=== PATIENT | female | born 1970 | race Caucasian/White ===

== ENCOUNTER → 2021-06-27 | Outpatient (CLI) | payer OTHER ==
--- NOTE | 2021-06-27 22:36 | MR ---
EXAMINATION TYPE: MR brain/cspine wo/w DATE OF EXAM: 06/27/2021 COMPARISON: None HISTORY: Difficulty swallowing, head and neck pain CONTRAST: Standard multiplanar, multisequence MRI departmental protocol utilizing 4.5 mL intravenous Gadavist g adolinium contrast. There is no evidence of an acute infarct. Diffusion images are normal. On the T2 and FLAIR images there are scattered small multiple foci of increased signal at the martin-wh ite matter junction of both cerebral hemispheres. Total number is less than 20 and most of these sakina ure less than 5 mm. The brainstem is intact. Corpus callosum appears normal. Sella turcica appears no rmal. Contrast images show no pathologic intracranial enhancement. There is normal enhancement of the venou s sinuses. Pituitary stalk is in the midline. Optic chiasm appears normal. There is no evidence of or bital mass. The cervical vertebra show some straightening. There is a few millimeter anterior subluxation of C3 i n relation to C4. There are small posterior disc bulging and herniation at C3-4 and C4-5 and C5-6. Th is appears larger at C3-4 level. Spinal canal is narrowed to 5 mm at C3-4. Canal measures 5.5 mm at C 5-6. Canal measures 7 mm at C4-5. Canal measures 6.5 mm at C2-3. There is mild loss of height of C6 v ertebral body of 20% the posterior elements show hypertrophic facet arthropathy in the mid cervical s pine. The cervical spinal cord shows no edema. Contrast images show no pathologic enhancement in the cervical spine. IMPRESSION: Multiple scattered white matter high signal foci in the brain more likely related to microvascular is chemia. Demyelinating disease also possible. No evidence of cortical infarct. Spondylotic changes in the cervical spine with old mild compression fracture C6. Multilevel mild post erior disc herniation and facet arthropathy. There is multilevel cervical spinal stenosis as above th at is more severe at C3-4 and C5-6.
== END | disposition home or self-care (01) ==
LOC: RADMRIMAIN 15:13 → EDBD 15:13
PROVIDERS: ATTEND Nurse Practitioner Family
DX: R93.0 Abnormal findings on diagnostic imaging of skull and head, not elsewhere classified (principal); M48.02 Spinal stenosis, cervical region; M50.20 Other cervical disc displacement, unspecified cervical region; M47.812 Spondylosis without myelopathy or radiculopathy, cervical region; M48.52XA Collapsed vertebra, not elsewhere classified, cervical region, initial encounter for fracture
CPT/HCPCS: 70553; 72156; A9585

== ENCOUNTER → 2022-06-30 | Day surgery (SDC) | payer OTHER ==
[2022-06-27 14:47] VITALS: BMI 19.9
[~2022-06-30] MED LIST: LIDOCAINE 1% INJ 10MG/ML (5 ML VIAL-PF) SQ ONE
[2022-06-30 10:41] VITALS: BP 118/56; PULSE 99; RESP 18; TEMP 98.2
[2022-06-30 10:50] LABS: Basophils % (A) 0 %; Eosinophils % (A) 0 %; HCT 34.2 % (34.0-46.0); HGB 11.3 gm/dL (11.4-16.0); Lymphocytes # (A) 1.4 k/uL (1.0-4.8); Lymphocytes % (A) 24 %; MCH 31.6 pg (25.0-35.0); MCHC 32.9 g/dL (31.0-37.0); MCV 96.1 fL (80.0-100.0); Mean Platelet Volume 7.3; Monocytes # (A) 0.5 k/uL (0-1.0); Monocytes % (A) 8 %; Neutrophils % (A) 67 %; Platelet Count 330 k/uL (150-450); RBC 3.56 m/uL (3.80-5.40); RDW 13.8 % (11.5-15.5)
[2022-06-30 11:15] LABS: Potassium 3.8 mmol/L (3.5-5.1)
--- NOTE | 2022-06-30 14:37 | IR ---
EXAMINATION TYPE: IR cvc insert >=5 years DATE OF EXAM: 06/30/2022 COMPARISON: NONE CLINICAL HISTORY: Infection Needs long-term intravenous access for antibiotics. PROCEDURE: Hand hygiene obtained with soap and water and alcohol-based hand rub. After informed consent, the skin overlying the left brachial vein was localized with ultrasound and n oted to be compressible and patent. An ultrasound image was obtained and submitted on the patient's chart. The overlying skin was prepped and draped and Lidocaine was used for local anesthesia. A ski n damaris was made with a scalpel. Access was gained to the vein under ultrasound guidance with a 21 ga uge needle and a 0.018 inch wire was advanced. Access site was dilated with Peel-Away sheath and cat heter tailored to the appropriate length and advanced such that the distal tip is at the cavoatrial j unction. Spot image was obtained verifying placement. Catheter was fixed to the skin and a sterile dressing was placed following hemostasis. Catheter was aspirated and flushed with saline. Patient w as discharged in stable condition without complication.Maximal barrier technique is utilized. Ultras ound image is documented on the chart. Ultrasound used with sterile technique. Fluoro time and fluoroscopic images submitted to document procedure: 31 intraoperative C-arm images, 0.5 minutes fluoroscopy time IMPRESSION: STATUS POST ULTRASOUND AND FLUOROSCOPIC GUIDED PICC LINE PLACEMENT, READY FOR USE. THIS PROCEDURE WAS PERFORMED BY THE UNDERSIGNED.
== END ==
LOC: CATHCVL 10:07
PROVIDERS: ATTEND Radiology Diagnostic Radiology
DX: L08.9 Local infection of the skin and subcutaneous tissue, unspecified (principal); B95.62 Methicillin resistant Staphylococcus aureus infection as the cause of diseases classified elsewhere; M19.90 Unspecified osteoarthritis, unspecified site; Z79.899 Other long term (current) drug therapy; Z79.82 Long term (current) use of aspirin; Z88.1 Allergy status to other antibiotic agents; Z88.2 Allergy status to sulfonamides
CPT/HCPCS: 36573; 80051; 82565; 84520; 85025; 81025; J2001

== ENCOUNTER → 2023-02-12 | Outpatient (CLI) | payer OTHER ==
[2023-02-12 14:35] LABS: INR 0.9 (<1.2)
[2023-02-12 14:36] LABS: Partial Thromboplastin Time 22.1 sec (22.0-30.0); Prothrombin Time 9.7 sec (9.0-12.0)
[2023-02-12 18:13] LABS: Basophils # (A) 0.01 X 10*3/uL (0.00-0.10); Basophils % (A) 0.2 %; Eosinophils # (A) 0 X 10*3/uL (0.04-0.35); Eosinophils % (A) 0 %; HCT 40.1 % (37.2-46.3); Immature Grans, Automated 0.4 %; Lymphocytes # (A) 1.32 X 10*3/uL (0.90-5.00); Lymphocytes % (A) 23.7 %; MCHC 32.4 g/dL (32.0-37.0); MCV 98.8 fL (80.0-97.0); Mean Platelet Volume 8.8 fL (9.5-12.2); Monocytes # (A) 0.63 X 10*3/uL (0.20-1.00); Monocytes % (A) 11.3 %; NRBC Per 100 WBC 0 /100 WBCS (0.0-0.0); Neutrophils # (A) 3.59 X 10*3/uL (1.80-7.70); Neutrophils % (A) 64.4 %; Platelet Count 325 X 10*3/uL (140-440); RBC 4.06 X 10*6/uL (4.10-5.20); WBC 5.57 X 10*3/uL (4.50-10.00)
[2023-02-12 18:19] LABS: African American GFR (CKD) 85.2 (60.0-200.0); Blood Urea Nitrogen 20.8 mg/dL (9.0-27.0); Non-African American GFR(CKD) 73.5 (60.0-200.0); Potassium 3.7 mmol/L (3.5-5.5)
[2023-02-12 18:51] LABS: Appearance,Urine Clear (Clear); Bilirubin,Urine Negative (Negative); Blood,Urine Negative (Negative); Color,Urine Dark Yellow (Yellow); Ketones,Urine Negative (Negative); Nitrite,Urine Negative (Negative); Specific Gravity,Urine 1.023 (1.001-1.030); Urobilinogen,Urine 0.2 (0.2,1.0)
[2023-02-12 18:59] LABS: Bacteria,Urine None Seen /HPF (None Seen)
== END | disposition home or self-care (01) ==
LOC: LABPAT 12:20
PROVIDERS: ATTEND Thoracic Surgery (Cardiothoracic Vascular Surgery)
DX: Z01.818 Encounter for other preprocedural examination (principal); E86.0 Dehydration; R91.1 Solitary pulmonary nodule; R58 Hemorrhage, not elsewhere classified; R06.00 Dyspnea, unspecified; R53.83 Other fatigue; R00.0 Tachycardia, unspecified; Z79.899 Other long term (current) drug therapy
CPT/HCPCS: 36415; 80051; 81001; 82565; 82947; 84520; 85025; 85610; 85730; 86850; 86900; 86901; 87086; 93005

== ENCOUNTER 2023-02-19 05:41 | Inpatient (IN) | payer OTHER ==
[2023-02-19] MEDS ORDERED: LIDOCAINE 1% (10MG/ML) FOR IV START INTRADERMA PRN (06:09)
[2023-02-19] MEDS ORDERED: DEXAMETHASONE SOD PHOSPHATE 4 MG/ML 1 ML VIAL IV ONE (06:09)
[2023-02-19] MEDS ORDERED: HYDROmorphone 0.5 MG/0.5 ML SYRINGE IVP PRN (07:00)
[2023-02-19] MEDS ORDERED: ONDANSETRON 4 MG/2 ML VIAL IVP PRN ×2 (07:00→09:53)
[2023-02-19] MEDS: LACTATED RINGERS 1,000 ML IV SCH ×2 (07:15→18:50)
[2023-02-19] MEDS ORDERED: SUCCINYLCHOLINE CHLORIDE 200 MG/10 ML VIAL IV ONE (07:30)
[2023-02-19] MEDS ORDERED: NEOSTIGMINE 1 MG/ML 10 ML VIAL ONE (07:30)
[2023-02-19] MEDS ORDERED: PROPOFOL 10 MG/ML 20 ML VIAL IV ONE (07:30)
[2023-02-19] MEDS ORDERED: GLYCOPYRROLATE 0.2 MG/ML 2 ML VIAL ONE (07:30)
[2023-02-19] MEDS ORDERED: MIDAZOLAM 2 MG/2 ML VIAL ONE (07:30)
[2023-02-19] MEDS ORDERED: fentaNYL (PF) 50 MCG/ML 2 ML AMP ONE (07:30)
[2023-02-19] MEDS ORDERED: ROPIVACAINE 5 MG/ML 30 ML VIAL ONE (07:30)
[2023-02-19] MEDS ORDERED: PHENYLEPHRINE-0.9% NACL SYG 1,000 MCG/10 ML SYRINGE ONE (07:30)
[2023-02-19] MEDS ORDERED: HYDROmorphone (PF) 1 MG/ML ONE (07:30)
[2023-02-19] MEDS ORDERED: ROCURONIUM 10 MG/ML (5 ML VIAL) IV ONE (07:30)
[2023-02-19] MEDS ORDERED: BUPIVACAINE (PF) 0.5% 30 ML VIAL SQ ONE ×3 (07:35→09:13)
[2023-02-19] MEDS ORDERED: LACTATED RINGERS 1,000 ML IV ONE (07:35)
--- NOTE | 2023-02-19 08:06 | P.ANPRN ---
Procedure Note - Anesthesia - Nerve Block Performed Right Erector Spinae Single Time Out Performed: Yes ([id number]) Date of Procedure: 02/19/23 Procedure Start Time: Procedure Stop Time: Location of Patient: PreOp Indication: Acute Post-Operative Pain, Requested by Surgeon Specifically requested for management of pain by DrHimanshu: Geo Chun Sedation Type: Sedate with meaningful contact maintained Preparation: Sterile Prep Position: Supine Catheter: None Needle Types: Pajunk Needle Gauge: 21 Ultrasound used to visualize needle placement: Yes Ultrasound used to observe medication spread: Yes Injectate: 0.5% Ropivacaine (see comment for volume) (30cc) Blood Aspirated: No Pain Paresthesia on Injection Noted: No Resistance on Injection: Normal Image Stored and Saved: Yes Events: Uneventful and Well Tolerated
--- NOTE | 2023-02-19 09:36 | P.OP ---
Date of Procedure: 02/19/23 Preoperative Diagnosis: Right lower lobe lung mass Postoperative Diagnosis: Same, non-small cell carcinoma Procedure(s) Performed: Right thoracoscopy with wedge rib section 1 cm mass superior segment right lower lobe with on table diagnosis and subsequent lymph node sampling Anesthesia: JAMARI Surgeon: Geo Chun Estimated Blood Loss (ml): 150 IV fluids (ml): 700 Pathology: other (Wedge resection superior segment right lower lobe section and permanent section, lymph node stations R 8, R 4, R 10, R 11, level 7) Condition: stable Disposition: PACU Indications for Procedure: 52-year-old female with long-standing smoking history. She had a small mass diagnosed in the superior segment of the right lower lobe some time ago. Subsequent CAT scan has shown increased size. PET scan showed minimal uptake. Was no evidence of metastasis on PET. Lesion was subcentimeter lesion. Wedge resection was indicated for diagnosis. It was felt that if adequate wedge resection was achieved and it was positive for carcinoma that lymph node sampling would be adequate treatment provided there was no evidence of lymph node involvement. Operative Findings: Subcentimeter mass was present in the posterior segment of the right upper lobe of the lung. Fissures were partially complete. It was relatively normal lymphadenopathy present in the chest despite the patient's smoking history. Lymph nodes were all anthracotic and grossly not involved with tumor. Description of Procedure: Patient was brought to the operating room and placed supine on the operating table. General anesthesia was induced. She was intubated with a double-lumen endotracheal tube. This was positioned with fiberoptic bronchoscopy. No endobronchial lesions were noted. Tube was secured in position. Patient was turned in the left lateral decubitus position and appropriately positioned. Tube position was checked. The right chest was sterilely prepped and draped. 3 one-inch incisions were made in the right chest. The lung ventilation was initiated. Incisions were carried down through skin and subcutaneous tissue through the chest wall musculature and the intercostal spaces. Video thoracoscope was introduced. Good pneumothorax been obtained. Chest was explored. The greater fissure between the upper lobe and lower lobe was extended posteriorly with a single firing of the 45 mm thick stapler. We then performed a wedge resection of the superior segment of the right lower lobe. Specimen was examined on the back table. Tumor was present in the specimen well away from the staple line. It was tied and a small portion saved for possible culture and it was sent for frozen section. Frozen resection returned positive for non-small cell carcinoma. Decided to proceed with lymph node sampling. The inferior pulmonary ligament ligament was taken down. No R9 lymph nodes could be identified. Dissection was carried up superior to the inferior pulmonary vein posteriorly. R8 and level 7 lymph nodes were sampled. The R8 lymph nodes were extremely small. Dissection was carried anterior to the bronchus below the fissure and R 11 lymph nodes in the region of the branches of the pulmonary vein and the pulmonary artery supplying and draining the superior segment of the right lower lobe were dissected out.'s were biopsied and sent as R 11 lymph nodes. The upper lobe was now retracted inferiorly. Dissection was carried out between the right mainstem bronchus, pulmonary artery and azygos vein. R 10 lymph nodes were biopsied. Dissection was now carried superior to the azygos vein and the pleura was opened and the R4 lymph nodes were biopsied. Patient was fairly oozy throughout the procedure. Total blood loss was about 150 mL. Good hemostasis was obtained at the end of the procedure. 28-Argentine chest tube was placed through anterior incision and positioned posterior apically. The lung was inflated under thoracoscopic visualization. Thoracoscope was then removed and the incisions closed with layers of Vicryl suture. Chest tube was secured with an 0 Ethibond suture. Was connected to a Pleur-evac to suction. No significant air leak was noted. Rib blocks were performed at the level of the incisions with half percent Marcaine. Incisions were dressed with skin glue and Band-Aids and a chest tube dressing was placed around the chest tube. Patient was turned supine and extubated and transferred to recovery in stable condition.
[2023-02-19] MEDS ORDERED: ACETAMINOPHEN TAB 325 MG TAB PO PRN (09:53)
[2023-02-19] MEDS ORDERED: ALBUTEROL NEBULIZED 2.5 MG/3 ML INHALATION PRN (09:53)
--- NOTE | 2023-02-19 10:03 | XR ---
EXAMINATION TYPE: XR chest 1V portable DATE OF EXAM: 02/19/2023 COMPARISON: CT 01/10/2023 HISTORY: Postop right lung biopsy TECHNIQUE: Single frontal view of the chest is obtained. FINDINGS: The heart is not enlarged and there is no pulmonary vascular congestion. Right perihilar o pacities may be on the basis of hemorrhage or consolidation. The left lung is clear. Right-sided ches t tube without pneumothorax. No acute osseous abnormalities. Surgical clips over the right upper quad rant. IMPRESSION: 1. Right-sided chest tube without pneumothorax. 2. Right perihilar opacity may be blood or consolidation due to recent biopsy.
[2023-02-19] MEDS ORDERED: IPRATROPIUM 0.5 MG/2.5 ML NEBU INHALATION PRN (10:58)
[2023-02-19] MEDS: IPRATROPIUM 0.5 MG/2.5 ML NEBU INHALATION SCH ×3 (12:23→20:03)
[2023-02-19] MEDS: ALBUTEROL NEBULIZED 2.5 MG/3 ML INHALATION SCH ×3 (12:23→20:03)
[2023-02-19] MEDS: KETOROLAC 15 MG/ML 1 ML VIAL IVP SCH ×3 (13:39→23:29)
[2023-02-19] MEDS: DEXTROSE 5%-0.45% NACL 1,000 ML IV SCH (13:41)
[2023-02-19] MEDS: traMADol 50 MG TAB PO SCH ×2 (16:59→20:45)
[2023-02-19] MEDS: LORazepam 0.5 MG TAB PO SCH ×2 (18:16→20:44)
[2023-02-19] MEDS: HEPARIN SODIUM,PORCINE/PF 5,000 UNIT/0.5 ML SYRINGE SQ SCH ×2 (18:17→23:29)
[2023-02-19] MEDS: FAMOTIDINE 20 MG TAB PO SCH (20:45)
[2023-02-19] MEDS: CYCLOBENZAPRINE 10 MG TAB PO SCH (20:45)
[2023-02-19] MEDS: lisinopriL 5 MG TAB PO SCH (20:45)
[2023-02-19] MEDS ORDERED: VENLAFAXINE HCL ER 150 MG CAP PO SCH (21:00)
[2023-02-20 03:14] VITALS: RESP 18
[2023-02-20] MEDS: traMADol 50 MG TAB PO SCH ×2 (03:47→09:16)
[2023-02-20] MEDS: KETOROLAC 15 MG/ML 1 ML VIAL IVP SCH ×2 (04:50→12:13)
[2023-02-20] MEDS: DEXTROSE 5%-0.45% NACL 1,000 ML IV SCH (05:38)
[2023-02-20 08:01] LABS: Basophils % (A) 0 %; Eosinophils % (A) 0 %; HCT 31.9 % (34.0-46.0); HGB 10.6 gm/dL (11.4-16.0); Lymphocytes # (A) 1.2 k/uL (1.0-4.8); Lymphocytes % (A) 21 %; MCH 32.6 pg (25.0-35.0); MCHC 33.2 g/dL (31.0-37.0); MCV 98.1 fL (80.0-100.0); Mean Platelet Volume 7.4; Monocytes # (A) 0.4 k/uL (0-1.0); Monocytes % (A) 8 %; Neutrophils # (A) 3.9 k/uL (1.3-7.7); Neutrophils % (A) 68 %; Platelet Count 299 k/uL (150-450); RBC 3.26 m/uL (3.80-5.40); RDW 14.3 % (11.5-15.5); WBC 5.8 k/uL (3.8-10.6)
[2023-02-20 08:17] LABS: African American GFR (CKD) >90 (>60 ml/min/1.73 sqM); Anion Gap 3 mmol/L; Blood Urea Nitrogen 20 mg/dL (7-17); Calcium 8.1 mg/dL (8.4-10.2); Carbon Dioxide 26 mmol/L (22-30); Chloride 108 mmol/L (98-107); Glucose 98 mg/dL (74-99); Non-African American GFR(CKD) 88 (>60 ml/min/1.73 sqM); Potassium 3.9 mmol/L (3.5-5.1); Sodium 137 mmol/L (137-145)
--- NOTE | 2023-02-20 08:20 | P.PN ---
Subjective Progress Note Date: 02/20/23 Principal diagnosis: Right lower lobe lung mass, frozen section positive for non-small cell carcinoma. Previous medical history of recent cessation from smoking, hypertension, hyperlipidemia, depression, hearing impairment, Alba-Holley reaction to Moderna vaccine, MRSA infection to her right leg in 2021 POD #1 right thoracoscopy with wedge resection of the mass superior segment right lower lobe with on table diagnosis and subsequent lymph node sampling The patient was seen and examined this morning sitting up in a recliner in the cardiac stepdown unit in no acute distress. States pain is controlled on current medication regimen, denies shortness of breath. Currently on room air with oxygen saturation in the high 90s. Poor effort with incentive spirometry, only achieving 500 mL. Right pleural chest tube remains to waterseal, no air leak present, 220 mL serosanguineous drainage since insertion. Patient did have some urinary retention this morning requiring straight catheterization, likely from anesthesia affect. No other new concerns. Objective - Vital Signs Vital signs: Vital Signs Temp 98.4 F 02/20/23 03:13 Pulse 97 02/20/23 03:13 Resp 18 02/20/23 03:13 BP 103/53 02/20/23 03:13 Pulse Ox 98 02/20/23 03:13 FiO2 Intake & Output 02/19/23 02/20/23 02/20/23 18:59 06:59 18:59 Intake Total 1070 Output Total 370 1410 Balance 700 -1410 Weight 58.6 kg 57.9 kg Intake: IV 950 Oral 120 Output: Chest Tube Drainage 110 210 Chest Tube Right 110 210 Drainage 110 Right Chest 110 Urine 1200 Straight 600 Estimated Blood Loss 150 Other: Voiding Method Toilet - Exam CONSTITUTIONAL: Appears comfortable, cooperative, no acute distress RESPIRATORY: Lungs sounds diminished bilaterally. Respirations even, nonlabored. Currently on room air with oxygen saturation 98%. Able to achieve 500 mL on incentive spirometry. Strong cough. CARDIOVASCULAR: S1, S2 present. Regular rate and rhythm, sinus rhythm on telemetry. Palpable peripheral pulses bilaterally. No edema present. No calf pain or tenderness noted. SCDs present. GASTROINTESTINAL: Abdomen soft, nontender, nondistended. Active bowel sounds present 4 quadrants. Tolerating diet GENITOURINARY: Straight cath 1 for 600 mL urine INTEGUMENTARY: Skin is warm and dry with evidence of good perfusion NEUROLOGIC: Cranial nerves II through XII intact MUSKULOSKELETAL: Able to move all extremities, strength equal bilaterally, gait normal PSYCHIATRIC: Alert and oriented to person place and time, appropriate affect, intact judgment and insight INVASIVE LINES AND TUBES: Right pleural chest tubes present to waterseal, no air leaks present, good tidaling with respiration, 220 mL serosanguineous drainage since insertion - Allied health notes Allied health notes reviewed: nursing - Labs CBC & Chem 7: 02/20/23 07:15 Labs: Abnormal Lab Results - Last 24 Hours (Table) 02/20/23 Range/Units 07:15 RBC 3.26 L (3.80-5.40) m/uL Hgb 10.6 L (11.4-16.0) gm/dL Hct 31.9 L (34.0-46.0) % - Imaging and Cardiology Chest x-ray: image reviewed Assessment and Plan Assessment: Right lower lobe lung mass, frozen section positive for non-small cell carcinoma, final pathology pending, status post right VATS for lung biopsy Recent cessation from smoking, preoperative FEV1 89% of predicted Hypertension Hyperlipidemia, treated Depression Hearing impairment Alba-Holley reaction to Moderna vaccine MRSA infection to her right leg in 2021 Plan: Will discontinue right pleural chest tube Will repeat chest x-ray early this afternoon Continue current medication regimen Increase activity, ambulate as tolerated Encourage incentive spirometry use Pain control per current medication regimen If repeat chest x-ray stable and patient able to void will discharge to home later today More recommendations to follow
[2023-02-20] MEDS: ALBUTEROL NEBULIZED 2.5 MG/3 ML INHALATION SCH ×2 (08:25→11:32)
[2023-02-20] MEDS: IPRATROPIUM 0.5 MG/2.5 ML NEBU INHALATION SCH ×2 (08:25→11:32)
[2023-02-20] MEDS ORDERED: Brexpiprazole [Rexulti] 4 MG Tablet PO SCH (09:00)
[2023-02-20] MEDS ORDERED: NICOTINE 21MG/24HR PATCH TRANSDERM SCH (09:00)
[2023-02-20] MEDS ORDERED: NON FORMULARY DRUG (Vitamin B Complex [Vitamin B Complex] 1 EACH Capsule) PO SCH (09:00)
[2023-02-20] MEDS ORDERED: MULTIVITAMINS, THERA 1 EACH TAB PO SCH (09:00)
[2023-02-20] MEDS ORDERED: ATORVASTATIN 20 MG TAB PO SCH (09:00)
[2023-02-20] MEDS ORDERED: ASPIRIN 81 MG PO SCH (09:00)
[2023-02-20] MEDS: HEPARIN SODIUM,PORCINE/PF 5,000 UNIT/0.5 ML SYRINGE SQ SCH (09:15)
[2023-02-20] MEDS: CYCLOBENZAPRINE 10 MG TAB PO SCH (09:16)
[2023-02-20] MEDS: LORazepam 0.5 MG TAB PO SCH (09:16)
[2023-02-20] MEDS: lisinopriL 5 MG TAB PO SCH (09:17)
[2023-02-20] MEDS: FAMOTIDINE 20 MG TAB PO SCH (09:17)
--- NOTE | 2023-02-20 09:42 | XR ---
EXAMINATION TYPE: XR chest 1V DATE OF EXAM: 02/20/2023 COMPARISON: 02/19/2023 HISTORY: Postlung biopsy TECHNIQUE: Single frontal view of the chest is obtained. FINDINGS: The heart is not enlarged and there is no pulmonary vascular congestion. Bibasilar subsegm ental consolidation. The left lung is clear. Right-sided chest tube with less than 5% right apical pn eumothorax. No acute osseous abnormalities. Surgical clips over the right upper quadrant. IMPRESSION: 1. Less than 5% right apical pneumothorax. 2. Bibasilar atelectasis.
[2023-02-20] MEDS ORDERED: KETOROLAC 15 MG/ML 1 ML VIAL IVP PRN (12:41)
[2023-02-20] MEDS ORDERED: traMADol 50 MG TAB PO PRN (12:42)
[2023-02-20 13:22] VITALS: BP 100/54; PULSE 108; TEMP 98.2
--- NOTE | 2023-02-20 14:11 | XR ---
EXAMINATION TYPE: XR chest 2V DATE OF EXAM: 02/20/2023 COMPARISON: 02/20/2023 TECHNIQUE: PA and lateral views submitted. HISTORY: Post chest tube FINDINGS: Bibasilar consolidation and small effusion. Chest tube has been removed. There is a less than 5% righ t apical pneumothorax. Heart size normal. No overt failure. Osseous structures stable. Surgical clips right upper quadrant. IMPRESSION: 1. Chest tube removal with stable less than 5% right apical pneumothorax. 2. Bilateral atelectasis with small effusion..
--- NOTE | 2023-02-20 14:29 | P.DS ---
Providers Date of admission: 02/19/23 05:41 Expected date of discharge: 02/20/23 Attending physician: Geo Chun Consults: 02/19/23 09:53 Consult Physician Routine Consulting Provider: Jorge Alberto Mireles Consult Reason/Comments: med mgmt; known to you Do you want consulting provider notified?: Yes 02/19/23 12:44 Consult Physician Routine Consulting Provider: Joshua Garcia Reason/Comments: post lung biopsy Do you want consulting provider notified?: Yes Primary care physician: Jorge Alberto Mireles MD Hospital Course: FINAL DIAGNOSIS: 1. Right lower lobe lung mass, frozen section positive for non-small cell carcinoma, final pathology pending 2. Recent cessation from smoking, preoperative FEV1 89% of predicted 3. Hypertension 4. Hyperlipidemia, treated 5. Depression PRINCIPAL PROCEDURE: Right thoracoscopy with wedge resection of the lung mass superior segment right lower lobe with on table diagnosis and subsequent lymph node sampling HISTORY OF PRESENT ILLNESS: This is a 52-year-old female who follows outpatient with Dr Jorge Alberto Mireles for primary care and Dr Joshua Garcia for pulmonology. She had been hospitalized in April 2021 with a MRSA infection. At that time she had a CT scan of the chest/abdomen/pelvis and a small pulmonary nodule was noted in the superior segment of the right lower lobe. She had subsequently presented to [facility] emergency department and had a CT of the chest to rule out pulmonary embolism, at that time she presented with chest pain symptomatology. On CT a noncalcified stellate 1 cm soft tissue density nodule was noted in the superior segment of the right lower lobe which was noted to have increased in size from 5 mm per prior study. The patient was referred to Dr. Garcia who sent the patient for a PET scan. PET scan confirmed the presence of a 9 mm superior right lower lobe nodule and there was mild hypermetabolic activity with a maximum SUV of 1.58. There was no adenopathy noted in either the CT or the PET scan and there was no evidence of metastasis by PET criteria either in the mediastinum or elsewhere in the body. The patient was referred to Dr. Chun from cardiothoracic surgery. She was recommended to undergo surgical excision with wedge resection, on table diagnosis to be obtained and if malignant plan was for mediastinal lymph node dissection. The usual perioperat michael course was discussed in detail with the patient, all risks and benefits were explained, all questions were answered, and consent was obtained to proceed with surgery. The patient was scheduled for surgery at the earliest possible date. HOSPITAL COURSE: The patient was brought to the hospital on 02/19/23, taken to the preoperative area, prepared in the usual fashion, and subsequently taken to the operating room where Dr. Chun performed right lower lobe lung biopsy. Upon completion of surgery the patient was extubated and taken to the recovery room for hemodynamic monitoring. She was eventually admitted to 3 S. cardiac stepdown unit for further monitoring and rehabilitation. She had no air leak the night of surgery and her chest tube was placed to waterseal. The following morning her chest x-ray was stable and her right pleural chest tube was discontinued without incident. Follow-up chest x-ray was stable. Her oxygen was titrated down, she was tolerating oral diet, her pain was controlled, and she was ready to be discharged to home on postoperative day #1. She received written and verbal instruction regarding her medications, activity restrictions, signs and symptoms requiring physician notification, and follow-up appointments. Patient Condition at Discharge: Stable Plan - Discharge Summary Discharge Rx Participant: Yes New Discharge Prescriptions: New Acetaminophen Tab [Tylenol] 650 mg PO Q4HR PRN tab PRN Reason: Mild To Moderate Pain (1 - 6) traMADol HCl [Ultram] 50 mg PO Q6H PRN #12 tab PRN Reason: Pain Continue Vitamin B Complex 1 each PO DAILY Aspirin [Adult Low Dose Aspirin EC] 81 mg PO DAILY Nicotine 21Mg/24Hr Patch [Habitrol] 1 each TRANSDERM DAILY LORazepam [Ativan] 0.5 mg PO TID lisinopriL [Zestril] 5 mg PO BID Orphenadrine [Norflex] 100 mg PO BID Multivitamin/Iron/Folic Acid [Centrum Adults Tablet] 1 each PO DAILY Brexpiprazole [Rexulti] 3 mg PO DAILY Venlafaxine HCl ER [Effexor XR] 150 mg PO HS Famotidine [Pepcid] 20 mg PO BID Atorvastatin [Lipitor] 20 mg PO DAILY Discontinued traMADol HCL [Ultram ER] 100 mg PO TID PRN PRN Reason: Pain Discharge Medication List Aspirin [Adult Low Dose Aspirin EC] 81 mg PO DAILY 06/27/22 [History] Brexpiprazole [Rexulti] 3 mg PO DAILY 06/27/22 [History] Multivitamin/Iron/Folic Acid [Centrum Adults Tablet] 1 each PO DAILY 06/27/22 [History] Orphenadrine [Norflex] 100 mg PO BID 06/27/22 [History] Venlafaxine HCl ER [Effexor XR] 150 mg PO HS 06/27/22 [History] Vitamin B Complex 1 each PO DAILY 06/27/22 [History] lisinopriL [Zestril] 5 mg PO BID 06/27/22 [History] Atorvastatin [Lipitor] 20 mg PO DAILY 02/18/23 [History] Famotidine [Pepcid] 20 mg PO BID 02/18/23 [History] LORazepam [Ativan] 0.5 mg PO TID 02/18/23 [History] Nicotine 21Mg/24Hr Patch [Habitrol] 1 each TRANSDERM DAILY 02/18/23 [History] Acetaminophen Tab [Tylenol] 650 mg PO Q4HR PRN tab 02/20/23 [Rx] traMADol HCl [Ultram] 50 mg PO Q6H PRN #12 tab 02/20/23 [Rx] Follow up Appointment(s)/Referral(s): Jorge Alberto Mireles MD [Primary Care Provider] - As Needed Geo Chun MD [STAFF PHYSICIAN] - 02/26/23 12:45 pm Joshua Garcia MD [STAFF PHYSICIAN] - 2 Weeks (Please call to make appointment as office was not answering phone 02/20/23) Activity/Diet/Wound Care/Special Instructions: DISCHARGE INSTRUCTIONS: 1. No driving for 2 weeks, or until physician gives their ok. 2. No lifting, pushing, or pulling more than 10 pounds for 2 weeks. The physician will advise of any restriction changes. 3. Continue pain control per as needed orders. Alternate acetaminophen (Tylenol) and ibuprofen (Motrin/Advil) for pain. 4. Continue with incentive spirometry and splinting until otherwise directed by the physician. 5. Leave chest tube dressing for 48 hours. After that, remove all dressings and shower daily. 6. Routine incision care. No powders, lotions, ointments on incisions. 7. Please call surgeon/ECHO TECH for temp greater than 101 F or purulent drainage from incisions. 8. Smoking cessation counseling and program information provided. Quitting smoking is the most important step you can take to improve your health. For additional information and assistance to quit smoking, please call the [place] tobacco quit line (2-477-EWJD-NOW/ ) or online: [email or web address] Discharge Disposition: HOME SELF-CARE
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
== END 2023-02-20 15:06 | disposition home or self-care (01) | DRG 121 ==
LOC: 2ORMAIN 05:41 → 3SCARD 10:52
PROVIDERS: ADMIT Thoracic Surgery (Cardiothoracic Vascular Surgery); ATTEND Thoracic Surgery (Cardiothoracic Vascular Surgery)
PROC: 07B70ZX Excision of Thorax Lymphatic, Open Approach, Diagnostic (ICD-10-PCS; 2023-02-19)
PROC: 3E0T3BZ Introduction of Anesthetic Agent into Peripheral Nerves and Plexi, Percutaneous Approach (ICD-10-PCS; 2023-02-19)
PROC: 0BBF0ZZ Excision of Right Lower Lung Lobe, Open Approach (ICD-10-PCS; principal; 2023-02-19 07:30)
DX: C34.31 Malignant neoplasm of lower lobe, right bronchus or lung (principal); Z71.6 Tobacco abuse counseling; Z86.16 Personal history of COVID-19; E78.5 Hyperlipidemia, unspecified; R91.1 Solitary pulmonary nodule; F31.9 Bipolar disorder, unspecified; J44.9 Chronic obstructive pulmonary disease, unspecified; R33.8 Other retention of urine; H91.92 Unspecified hearing loss, left ear; J98.11 Atelectasis; Z79.899 Other long term (current) drug therapy; Z86.14 Personal history of Methicillin resistant Staphylococcus aureus infection; Z86.711 Personal history of pulmonary embolism; I10 Essential (primary) hypertension; Z87.891 Personal history of nicotine dependence; Z79.82 Long term (current) use of aspirin; Z88.2 Allergy status to sulfonamides
CPT/HCPCS: 64461; 71045; 71046; 80048; 85025; 86850; 86900; 86901; 88305; 88307; 88331; 88341; 88342; 94640; 94760

== ENCOUNTER → 2023-02-23 | Outpatient (CLI) | payer OTHER ==
--- NOTE | 2023-02-23 15:07 | CT ---
EXAMINATION TYPE: CT pelvis w con DATE OF EXAM: 02/23/2023 COMPARISON: PET CT January 30, 2023. Prior whole-body CT May 06, 2021 HISTORY: r/o mets. Abnormal PET/CT. CT DLP: 400.2 mGycm Automated exposure control for dose reduction was used. CONTRAST: Performed with IV Contrast, patient injected with 100 mL of Isovue 300. FINDINGS: Moderately distended bladder without intraluminal mass or calculus. No suspicious small or large bowel dilatation. Oral Contrast does not reach level of the transverse colon. Anteverted uterus redemonstrated. Likely normal size left ovary axial image 29 in the left pelvis. Di fficult to differentiate right ovary from uterus. There is heterogeneous area in the posterior right pelvis has similar appearance to most recent PET/CT measuring 3.3 x 3.0 cm on axial image 31. In retr ospect this appears to be a portion of the lower uterine segment likely adjacent to the normal right ovary in the periphery. Marked 90 degree flexion in the lower sacrum/coccyx is redemonstrated. No acute osseous fracture or d islocation. No pelvic hernia or adenopathy seen. Mild subcutaneous edema over the left thigh is prese nt IMPRESSION: No suspicious pelvic mass or adenopathy on this exam.
== END | disposition home or self-care (01) ==
LOC: RADCTMAIN 12:19
PROVIDERS: ATTEND Family Medicine
DX: C34.90 Malignant neoplasm of unspecified part of unspecified bronchus or lung (principal); N83.8 Other noninflammatory disorders of ovary, fallopian tube and broad ligament
CPT/HCPCS: 72193; Q9967

== ENCOUNTER → 2023-05-18 | Outpatient (CLI) | payer OTHER ==
--- NOTE | 2023-05-18 12:11 | CT ---
EXAMINATION TYPE: CT brain w con DATE OF EXAM: 05/18/2023 COMPARISON: None HISTORY: Lung cancer. CT DLP: 1050.1mGycm CONTRAST: CT scan of the head is performed with IV Contrast, patient injected with 100ml mL of Isovue 300. Contrast-enhanced CT of the brain is submitted for evaluation. The ventricles are midline. There is no evidence for intracranial hemorrhage or extra-axial collection. No mass effects are identified. Visualized bony calvarium is intact. Contrast is administered and no enhancing lesions are detected . No pathologic enhancement is identified. If symptoms persist consider MRI. IMPRESSION: No evidence for metastatic disease to the brain at this time.
--- NOTE | 2023-05-18 13:02 | CT ---
EXAMINATION TYPE: CT chest w con DATE OF EXAM: 05/18/2023 COMPARISON: PET CT fusion 01/30/2023 HISTORY: Lung cancer. CT DLP: 289.3 mGycm Automated exposure control for dose reduction was used. CONTRAST: CT scan of the chest is performed with IV Contrast, patient injected with 100ml mL of Isovue 300. FINDINGS: LUNGS: There is been surgical excision of previously noted superior right lower lobe nodule. Surgical sutures are in place. There is no evidence for tumor recurrence. There is focal pleural thickening w hich appears to be medial involving the right midlung zone laterally. The lungs are otherwise clear. No evidence for infiltrate or mass. No pleural effusion. MEDIASTINUM: There are no greater than 1 cm hilar or mediastinal lymph nodes. No pericardial effusi on is seen. Thoracic aorta is of normal caliber. The heart is not enlarged. UPPER ABDOMEN: The gallbladder is surgically absent. Simple cyst left kidney measuring 1.8 cm. OTHER: No additional significant abnormality is seen. IMPRESSION: 2. Surgical excision of previously noted superior right lower lobe nodule. No evidence for recurrent or residual nodule at this time. Focal pleural thickening right mid lung zone.
== END | disposition home or self-care (01) ==
LOC: RADCTMAIN 11:20
PROVIDERS: ATTEND Internal Medicine
DX: C34.31 Malignant neoplasm of lower lobe, right bronchus or lung (principal); Z71.3 Dietary counseling and surveillance
CPT/HCPCS: 70460; 71260; Q9967

== ENCOUNTER → 2023-08-18 | Outpatient (CLI) | payer OTHER ==
--- NOTE | 2023-08-18 12:34 | CT ---
EXAMINATION TYPE: CT chest w con DATE OF EXAM: 08/18/2023 COMPARISON: 05/18/2023 HISTORY: f/u lung ca CT DLP: 142.1 mGycm Automated exposure control for dose reduction was used. TECHNIQUE: CT scan of the chest is performed with IV Contrast, patient injected with 100 mL of Isovue 370. MIP Images are created on CT scanner and reviewed. 3D reconstructed images are created on an independent workstation and reviewed. FINDINGS: There are postsurgical changes for tumor resection in the superior segment of the right lower lobe. T here is persistent stable interstitial density which is likely postsurgical in nature. There is also mild stable pleural thickening along the right lateral chest wall in the mid to lower lung zone. There is no new or suspicious pulmonary nodule or mass. There is no airspace consolidation. There is no pleural effusion or pneumothorax. Allograft great ves sels chest are normal is no mediastinal, hilar or axillary adenopathy. Limited scanning the upper abdomen reveals cholecystectomy. No focal osseous abnormalities are seen. IMPRESSION: 1. No acute cardiopulmonary disease. 2. No evidence of lung cancer recurrence or metastatic disease. 3. Stable postsurgical changes as described above.
== END | disposition home or self-care (01) ==
LOC: RADCTMAIN 11:31
PROVIDERS: ATTEND Internal Medicine
DX: C34.31 Malignant neoplasm of lower lobe, right bronchus or lung (principal); Z71.3 Dietary counseling and surveillance
CPT/HCPCS: 71260; Q9967

== ENCOUNTER → 2023-12-22 | Outpatient (CLI) | payer OTHER ==
[2023-12-22 11:18] LABS: African American GFR (CKD) 62 (>60 ml/min/1.73 sqM); Blood Urea Nitrogen 23 mg/dL (7-17); Non-African American GFR(CKD) 54 (>60 ml/min/1.73 sqM)
--- NOTE | 2023-12-22 12:56 | CT ---
EXAMINATION TYPE: CT chest w con DATE OF EXAM: 12/22/2023 COMPARISON: 08/18/2023 HISTORY: Follow up lung ca CT DLP: 182.40 mGycm, Automated exposure control for dose reduction was used. CONTRAST: Performed injected with 80 mL of Isovue 300. TECHNIQUE: Axial images were obtained at 5 mm thick sections. Reconstructed images are reviewed on [employer] computer in the coronal plane. FINDINGS: Portion of the thyroid visualized is normal. There is some mild pleural thickening along the lateral right lung margin measuring 1.7 cm. Series 4 image 35. This appears smaller than the comparison. Some mild nonspecific infiltrate appears to extend towards the posterior medial mid right lung margin from the hilum. This was present previously and appears stable. No enlarged mediastinal or hilar adenopathy is evident. The ascending aorta diameter at the level o f the main pulmonary artery is 3.3 cm. The main pulmonary artery diameter at the bifurcation is 2.[address] sections are obtained through the upper abdomen. Abdomen is essentially unremarkable. IMPRESSION: 1. Stable appearance bilateral lung esqueda. 2. No suspicious abnormality to suggest recurrent or metastatic lung cancer.
== END | disposition home or self-care (01) ==
LOC: RADCTMAIN 10:38
PROVIDERS: ATTEND Internal Medicine
DX: C34.31 Malignant neoplasm of lower lobe, right bronchus or lung (principal); Z71.3 Dietary counseling and surveillance
CPT/HCPCS: 82565; 84520; 71260; 36415; Q9967

== ENCOUNTER → 2024-04-14 | Outpatient (CLI) | payer OTHER ==
--- NOTE | 2024-04-14 12:01 | CT ---
EXAMINATION TYPE: CT chest w con DATE OF EXAM: 04/14/2024 COMPARISON: 12/22/2023 HISTORY: f/u lung ca CT DLP: 187.2 mGycm Automated exposure control for dose reduction was used. CONTRAST: CT scan of the chest is performed with IV Contrast, patient injected with 100 mL of Isovue 300. FINDINGS: LUNGS: There is mild pleural thickening along the lateral right lung margin measuring 1.7 cm. This ar ea is stable. Postoperative changes right infrahilar region. No recurrent or residual nodule or mass. No pleural effusion. MEDIASTINUM: There are no greater than 1 cm hilar or mediastinal lymph nodes. No pericardial effusi on is seen. Thoracic aorta is of normal caliber. The heart is not enlarged. UPPER ABDOMEN: No significant abnormality appreciated. OTHER: No additional significant abnormality is seen. IMPRESSION: Evidence recurrent or residual mass or nodule. No adenopathy present.
== END | disposition home or self-care (01) ==
LOC: RADCTMAIN 10:49
PROVIDERS: ATTEND Internal Medicine
DX: C34.31 Malignant neoplasm of lower lobe, right bronchus or lung (principal); Z71.3 Dietary counseling and surveillance
CPT/HCPCS: 71260; Q9967

== ENCOUNTER → 2024-08-05 | Outpatient (CLI) | payer OTHER ==
--- NOTE | 2024-08-05 17:16 | CT ---
EXAMINATION TYPE: CT chest w con CT DLP: 195.7 mGycm, Automated exposure control for dose reduction was used. DATE OF EXAM: 08/05/2024 4:11 PM COMPARISON: Multiple CT chest with most recent 04/14/2024 CLINICAL INDICATION:Female, 54 years old with history of C34.31 LUNG CANCER; PHH, f/u lung ca TECHNIQUE: Multiple axial images were obtained through the chest following the administration of 100 cc of Isovue 300. . Coronal and sagittal reformats reviewed. FINDINGS: LUNGS/ PLEURA: No pleural effusion, pneumothorax, focal consolidation. Linear atelectasis within the left lower lobe. Post surgical changes of the right lower lobe. Stable focal pleural thickening invol ving the right mid lung zone laterally. No new suspicious pulmonary nodules or masses. AIRWAY: Patent and unremarkable.. HEART: Size within normal limits. No pericardial effusion. MEDIASTINUM: No evidence of adenopathy. VASCULATURE: No aortic aneurysm. Mild to moderate atherosclerotic calcification at the origins of th e aortic arch branch vessels. MUSCULOSKELETAL: No acute osseous abnormalities. No aggressive osseous lesion. Stable sclerotic foci within the T9 and T8 vertebral bodies. Probable bone islands. Mild multilevel degenerative disc disea se. SOFT TISSUES/LYMPH NODES: Unremarkable. LOWER NECK: No significant findings. UPPER ABDOMEN: Postcholecystectomy changes with expected extra hepatic biliary dilatation. IMPRESSION: Postsurgical changes without evidence for recurrent or metastatic lung cancer. No adenopathy.
== END | disposition home or self-care (01) ==
LOC: RADCTMAIN 15:36
PROVIDERS: ATTEND Internal Medicine
DX: C34.31 Malignant neoplasm of lower lobe, right bronchus or lung
CPT/HCPCS: 71260

== ENCOUNTER → 2024-12-15 | Outpatient (CLI) | payer OTHER ==
--- NOTE | 2024-12-16 22:36 | CT ---
EXAMINATION TYPE: CT chest w con DATE OF EXAM: 12/15/2024 11:06 AM COMPARISON: 08/05/2024, 04/14/2024 CLINICAL INDICATION: Female, 54 years old with history of C34.31, Z71.3, f/u lung ca TECHNIQUE: Axial images were obtained at 5 mm thick sections. Reconstructed images are reviewed on [employer] computer in the coronal plane. Contrast used:100 mL of Isovue 300 with IV Contrast, (none if empty) Oral contrast used: (none if empty) CT DLP: 426 mGycm, Automated exposure control for dose reduction was used. FINDINGS: Portion of the thyroid visualized is normal. Streaky opacity is present within the posterior left mid to lower lung field and within the posterior medial right mid lung field. Correlate for atelectasis. Recurrence is considered less likely. The po sterior medial right lung finding could be related to postradiation treatment. No enlarged mediastinal or hilar adenopathy is evident. No suspicious new or enlarging lymphadenopat hy identified. The ascending aorta diameter at the level of the main pulmonary artery is 3.2 cm. The main pulmonary artery diameter at the bifurcation is 2.[address] sections are obtained through the upper abdomen. Abdomen is essentially unremarkable. IMPRESSION: 1. There are some streaky opacities within the bilateral lungs more likely related to atelectasis. Fo llow-up can be performed. Finding is new from the most recent comparison. [facility], , 12/16/2024 10:34 PM
== END | disposition home or self-care (01) ==
LOC: RADCTMAIN 10:41
PROVIDERS: ATTEND Internal Medicine
DX: C34.31 Malignant neoplasm of lower lobe, right bronchus or lung (principal); R91.8 Other nonspecific abnormal finding of lung field; Z71.3 Dietary counseling and surveillance
CPT/HCPCS: 71260; Q9967

== ENCOUNTER → 2025-06-13 | Outpatient (CLI) | payer OTHER ==
--- NOTE | 2025-06-13 16:12 | CT ---
CT of chest with contrast HISTORY: Lung cancer COMPARISON: 12/15/2024. TECHNIQUE: Multiple axial images are obtained through the thorax following IV contrast material. FINDINGS: There is stable mild postsurgical changes in the right lower lobe mild interstitial density and archi tectural distortion of the parenchyma. The band of atelectasis in the left lower lobe on the prior st udy has cleared in the interval. There are no suspicious lung masses nodules. There is no airspace consolidation. There is no pleural effusion, pleural thickening or pneumothorax. The great vessels the chest are normal with no mediastinal, hilar or axillary adenopathy. There is no pulmonary embolus. There is again to the upper abdomen reveals no gross abnormality. There are 2 stable sclerotic densities in T8 and T9, unchanged since the CT chest dated 05/18/2023. IMPRESSION: 1. No acute cardiopulmonary disease. 2. No evidence of recurrent or metastatic disease. [facility], , 06/13/2025 4:10 PM
== END | disposition home or self-care (01) ==
LOC: RADCTMAIN 15:08
PROVIDERS: ATTEND Internal Medicine
DX: C34.31 Malignant neoplasm of lower lobe, right bronchus or lung (principal); Z71.3 Dietary counseling and surveillance
CPT/HCPCS: 71260; Q9967